=== PATIENT | female | born 1950 | race Caucasian/White ===

== ENCOUNTER 2019-09-05 10:00 | Outpatient (RCR) | payer MEDICARE, SELFPAY ==
[2019-07-20 14:00] VITALS: BP 143/80; BP 146/74; PULSE 55; RESP 16; O2SAT 100; BMI 28.8
[2019-07-20 14:02] VITALS: BP 162/77
[2019-07-20 15:05] VITALS: PULSE 54
== END 2019-10-18 23:59 | disposition home or self-care (01) ==
PROVIDERS: PCP Internal Medicine; Visit Provider Internal Medicine
DX: Z98.61 Coronary angioplasty status (principal)
CPT/HCPCS: 93798

== ENCOUNTER 2019-10-13 01:29 | Day surgery (SDC) | payer MEDICARE, SELFPAY ==
[2019-10-07 14:21] VITALS: BMI 26.6
[2019-10-13 10:46] VITALS: BP 150/92; PULSE 52; RESP 16; TEMP 36.9; O2SAT 99
[2019-10-13] MEDS: LACTATED RINGERS 1,000 ML 150 ML IV CONT (11:05)
--- NOTE | 2019-10-13 11:06 | WPDHPUPDATE1 ---
History and Physical Update Update Date/Time: 10/13/19 11:06 History and Physical has been reviewed, including an updated exam of the patient. There are NO changes in the patient's condition. Risks, benefits, and alternatives have been discussed and questions answered. Patient agrees to proceed with procedure.
--- NOTE | 2019-10-13 11:23 | WPDANESEPPF ---
Anes - Initial Pre Proc Eval Procedure: Operation Date: 10/13/19 14:45 Proposed Procedures p Screening Colonoscopy - Anuel Trevino MD Date/Time: 10/13/19 11:23 Surgeon: Anuel Trevino MD Pre Op Diagnosis: Neoplasm Screening Patient Data Age: 69 Gender: F Height: 5 ft 6 in Weight: 77 kg Last Vital Signs Temp 36.9 C 10/13/19 10:46 Pulse 52 L 10/13/19 10:46 Resp 16 10/13/19 10:46 BP 150/92 H 10/13/19 10:46 Pulse Ox 99 10/13/19 10:46 Allergies Allergy/AdvReac Type Severity Reaction Status Date / Time No Known Allergies Allergy Unverified 10/13/19 10:43 Home Medications Medication Instructions Recorded Confirmed Type aspirin 81 mg chewable tablet 81 mg PO DAILY 10/03/19 10/13/19 History atorvastatin 80 mg tablet 80 mg PO DAILY 10/03/19 10/13/19 History carvedilol 3.125 mg tablet 3.125 mg PO Q12H 10/03/19 10/07/19 History clopidogrel 75 mg tablet 75 mg PO DAILY 10/03/19 10/13/19 History ergocalciferol (vitamin D2) 50,000 See Rx Instructions .ROUTE .COMPLEX 10/03/19 History unit tablet escitalopram oxalate 5 mg tablet 5 mg PO DAILY 10/03/19 10/07/19 History losartan 50 mg tablet 50 mg PO DAILY 10/03/19 10/07/19 History pantoprazole 20 mg tablet,delayed 20 mg PO DAILY tablet 10/03/19 10/07/19 History release Patient hx anesthesia problems: none Family hx anesthesia problems: none PMFSH Past Medical History Medical History Asthma CAD (coronary artery disease) High cholesterol Hypertension Positive colorectal cancer screening using Cologuard test Surgical History Surgical History H/O tubal ligation History of tonsillectomy Family History Family History Father No problems noted. Mother Pacemaker Social History Social History Smoking status: Never smoker Second hand tobacco smoke exposure: No Anes - Eval Final PreProcedure Day of Procedure 10/13/19 11:23 Patient weight: overweight Heart: regular rate and rhythm Lungs: clear to auscultation Airway: Mallampati scale class II Neurological: alert and oriented Last oral intake: >/= 8 hours ASA classification: III Emergent: no Anesthetic plan: proceed Anesthesia type and monitoring: general GIVS and standard monitoring Informed Consent: The patient's anesthetic plan and its attendant risks and benefits were discussed with the patient/family/POA. Questions were solicited and answers provided to the satisfaction of the patient/family/POA.
[2019-10-13 12:09] VITALS: BP 115/52; PULSE 55; RESP 15; O2SAT 98
[2019-10-13 12:19] VITALS: BP 111/51; PULSE 52; RESP 17; O2SAT 100
[2019-10-13 12:29] VITALS: BP 129/63; PULSE 54; RESP 18; O2SAT 100
[2019-10-13 12:39] VITALS: BP 151/73; PULSE 56; RESP 20; O2SAT 100
== END 2019-10-13 12:44 | disposition home or self-care (01) ==
PROVIDERS: PCP Internal Medicine; Visit Provider Internal Medicine Gastroenterology
PROC: 0DJD8ZZ Inspection of Lower Intestinal Tract, Via Natural or Artificial Opening Endoscopic (ICD-10-PCS; CPT 45378; principal; 2019-10-13 14:45)
DX: Z12.11 Encounter for screening for malignant neoplasm of colon (principal); R19.5 Other fecal abnormalities; D12.0 Benign neoplasm of cecum; D12.2 Benign neoplasm of ascending colon; K57.30 Diverticulosis of large intestine without perforation or abscess without bleeding; K64.8 Other hemorrhoids; I10 Essential (primary) hypertension; I25.10 Atherosclerotic heart disease of native coronary artery without angina pectoris; E78.00 Pure hypercholesterolemia, unspecified; Z79.82 Long term (current) use of aspirin; Z79.02 Long term (current) use of antithrombotics/antiplatelets
CPT/HCPCS: 45385; 88305; J2704; J7120

== ENCOUNTER 2019-10-19 10:17 | Outpatient (RCR) | payer MEDICARE, SELFPAY ==
[2019-10-19 00:04] VITALS: BP 162/77; PULSE 54; RESP 16; O2SAT 100; BMI 28.8
== END 2019-10-21 13:38 | disposition home or self-care (01) ==
PROVIDERS: PCP Internal Medicine; Visit Provider Internal Medicine
DX: Z98.61 Coronary angioplasty status (principal)
CPT/HCPCS: 93798

== ENCOUNTER 2021-12-06 10:49 | Outpatient (CLI) | payer MEDICARE, SELFPAY ==
[2021-12-06 11:01] LABS: Appearance Urine Clear (Clear); Bilirubin Urine Negative (Negative); Color Urine Light Yellow (Yellow); Glucose Urine UA Negative (Negative); Hematocrit 34.9 % (35.0-42.0); Hemoglobin 11.8 g/dL (11.7-13.8); Ketones Urine Negative (Negative); Leukocyte Esterase Ur 1+ (Negative); Mean Corpuscular HGB Conc 33.8 g/dL (32.0-36.0); Mean Corpuscular Hemoglobin 29.8 pg (27.0-31.0); Mean Corpuscular Volume 88.1 fL (78.0-102.0); Mean Platelet Volume 9.4 fl (9.2-11.8); Nitrate Urine Negative (Negative); Platelet Count Result 219 K/mm3 (150-420); Protein Urine Negative (Negative); Red Blood Count 3.96 M/mm3 (4.20-5.40); Specific Grav Ur >= 1.030 (1.010-1.020); Urobilinogen Urine 0.2 mg/dL (0.2-1.0); White Blood Count 3.7 K/mm3 (4.8-10.8)
[2021-12-06 11:06] LABS: Add Urine Microscopic? YES; Bacteria Urine 1+ /hpf; Blood Urine Trace-lysed (Negative); Squamous Epithelial Cell Urine Few /hpf (Few); WBC Urine 0-3 /hpf (0-3)
[2021-12-06 11:22] LABS: Band Neutrophils Percent 0 % (0-6); Basophils Absolute Manual 0.03 K/mm3 (0-0.1); Basophils Percent Manual 1 % (0-1); Eosinophils Absolute Manual 0.07 K/mm3 (0.02-0.5); Eosinophils Percent Manual 2 % (1-6); Lymphocytes Absolute Manual 1.51 K/mm3 (1.1-4.5); Lymphocytes Percent Manual 41 % (18-44); Monocytes Absolute Manual 0.22 K/mm3 (0.1-0.90); Monocytes Percent Manual 6 % (3-9); Neutrophils Absolute Manual 1.85 K/mm3 (1.7-7.2); Neutrophils Percent Manual 50 % (46-73); Total Cells Counted 100
[2021-12-06 11:24] LABS: Platelet Estimate Adequate (Adequate)
[2021-12-06 12:17] LABS: Alanine Aminotransferase 26 U/L (14-59); Albumin Level 3.8 g/dL (3.4-5.0); Alkaline Phosphatase 76 U/L (46-116); Anion Gap 6 mmol/L (8-16); Aspartate Amino Transferase 14 U/L (15-37); Bilirubin,Total 0.6 mg/dL (0.00-1.00); Blood Urea Nitrogen 12 mg/dL (7-18); Calcium 8.7 mg/dL (8.5-10.1); Carbon Dioxide 30 mmol/L (21-32); Chloride 105 mmol/L (98-108); Cholesterol 180 mg/dL (0-200); Estimated Glomerular Filt Rate 59; Glucose 96 mg/dL (70-99); HDL Direct 50 mg/dL (40-60); LDL Cholesterol Calculated 98 mg/dL (<130); Osmolality Calculated 291 mOsm/kg (285-295); Potassium 4.2 mmol/L (3.5-5.1); Sodium 141 mmol/L (136-145); Total Protein 6.7 g/dL (6.4-8.2); Triglycerides 162 mg/dL (0-150)
== END 2021-12-06 10:50 | disposition home or self-care (01) ==
LOC: CHSLAB 10:51
PROVIDERS: PCP Internal Medicine; Visit Provider Internal Medicine
DX: E78.5 Hyperlipidemia, unspecified (principal); I10 Essential (primary) hypertension
CPT/HCPCS: 36415; 80053; 80061; 81001; 85025

== ENCOUNTER 2021-12-10 10:28 | Outpatient (CLI) | payer MEDICARE, SELFPAY ==
--- NOTE | ~2021-12-10 | XR_ITS ---
EXAM: XR hand RT min 3V HISTORY: chronic RT 1st metacarpal pain COMPARISON: None available FINDINGS: Osteopenia. Scattered mild interphalangeal joint degenerative change. Moderate sclerosis, severe narrowing, with adjacent old fracture fragment or fractured osteophyte at the trapeziometacarp al joint. Scattered subchondral cysts in the carpal bones. Old ulnar styloid fracture fragment. Ulnar negative variance. IMPRESSION: Moderate right trapeziometacarpal osteoarthritis. Reviewed, dictated and finalized at location K.
--- NOTE | ~2021-12-10 | US_ITS ---
EXAMINATION: US venous doppler LE RT EXAM DATE: 12/10/2021 10:49 INDICATION: Right Leg Swelling. TECHNIQUE: Multiple grayscale, color flow and Doppler images of the right lower extremity deep venous system were obtained and reviewed. There is no prior study for comparison. FINDINGS: The right common femoral, femoral and profunda veins demonstrate normal color flow, respira tory variation, augmentation and compressibility. Compressibility, color flow confirmed within the r ight popliteal, posterior tibial, peroneal, and greater saphenous veins. IMPRESSION: No right lower extremity deep venous thrombosis. Reviewed, dictated and finalized at location A.
== END 2021-12-10 10:29 | disposition home or self-care (01) ==
LOC: CHSIMG 10:29
PROVIDERS: PCP Internal Medicine; Visit Provider Internal Medicine
DX: M79.89 Other specified soft tissue disorders (principal); M79.641 Pain in right hand
CPT/HCPCS: 73130; 93971

== ENCOUNTER 2021-12-20 13:22 | Outpatient (RCR) | payer MEDICARE, SELFPAY ==
--- NOTE | 2021-12-20 14:47 | PTOPEVAL ---
PHYSICAL THERAPY EVALUATION AND PLAN OF CARE 12-20-21 Thank you for referring Katlyn Mckeon to [facility] for the diagnosis of R lower leg lymphedema. The evaluation was completed and she continues to improve with decreased edema. Education was provided for lymphedema information, skin care, compression garments. She is to obtain a compression calf high garment. The PT plan of care is 0-2 x/week for 4 weeks. Shannan is to call if she has any further questions, or if additional therapy treatment is needed, she will call for an appointment. Please review, sign, date and return this plan of care JOSE. I agree with and certify that the following plan of care is medically necessary. Referring Physician Date Attending Provider: Jameel Gallo MD Past Medical History Source of Past Medical History Recalled from Previous Visit, Confirmed with Patient/Family Neurological History Hx Neurological Disorders No Significant History Cardiovascular History Hx Cardiac Catheterization Yes Hx Chest Pain Yes Hx Coronary Stent Yes Hx Hypertension Yes: meds control Hx Myocardial Infarction Yes Respiratory History Hx Asthma Yes Hx Pneumonia Yes Gastrointestinal History Hx Gastroesophageal Reflux Disease Yes Hx Other Gastrointestinal Disorders Yes: to see gastro dr due to stomach issues Genitourinary History Hx Genitourinary Disorders No Significant History Musculoskeletal History Hx Orthopedic Surgery Yes: R FOOT SURGERY- bunion surgery Hx Other Musculoskeletal Disorders Yes: L bunion; R thumb OA and small fracture- wearing splint Hematological History Hx Hematological Disorders No Significant History Endocrine History Hx Endocrine Disorders No Significant History HEENT History Hx HEENT Disorders No Significant History Integumentary History Hx Skin Disorders No Significant History Reproductive History Hx Tubal Ligation Yes Psychosocial History Hx Anxiety Yes Hx Depression Yes Hx Anesthesia Reactions No Significant History Evaluation Information Diagnosis edema of R LE Onset Oct 29, 2021 Prior Level of Function Activity Level (Last 3 Months) Activity of Daily Living Ability Independent Indoor/Home Mobility Independent Community Mobility Independent Stairs Ability Independent Functional Cognition (Planning, Shopping Independent , Taking Medications) Cooking Yes Cleaning Yes Laundry Yes Shopping Yes Driving Yes Home Setting Home Type House Living Situation With Spo
--- NOTE | 2022-01-20 13:11 | PCPTNOTE ---
PHYSICAL THERAPY DISCHARGE 01-20-22 Attending Provider: Jameel Gallo MD Patient:Katlyn Mckeon Date of :1950 Mrs. Mckeon has not returned for any further treatments since the initial evaluation on 12/20/2021, therefore she will be discharged at this time. At the evaluation, she reported that her leg had improved. She was measured for a compression garment and was to call if she had any further needs. Thank you for referring Shannan to [facility]. Please review, sign, date and return this discharge summary JOSE. I have been updated about the patient's current status and I agree with discharge from the above service at this time. Referring Physician Date
== END 2022-01-20 15:40 | disposition home or self-care (01) ==
LOC: ANHPT 13:22
PROVIDERS: PCP Internal Medicine; Visit Provider Orthopaedic Surgery
DX: M25.461 Effusion, right knee (principal)
CPT/HCPCS: 97161

== ENCOUNTER 2022-01-03 01:23 | Day surgery (SDC) | payer MEDICARE, SELFPAY ==
[2021-12-26 12:31] VITALS: BMI 28.4
[2022-01-03 07:42] VITALS: BP 140/52; PULSE 47; RESP 16; TEMP 36.1; O2SAT 99
--- NOTE | 2022-01-03 07:42 | P.PNAN_ITS ---
Anes - Initial Pre Proc Eval Procedure: Operation Date: 01/03/22 08:30 Proposed Procedures p Esophagogastroduodenoscopy - Anuel Trevino MD Date/Time: 01/03/22 07:42 Surgeon: Anuel Trevino MD Pre Op Diagnosis: dysphagia Patient Data Age: 71 Gender: F Height: 1.68 m Weight: 80 kg Allergies Allergy/AdvReac Type Severity Reaction Status Date / Time No Known Allergies Allergy Verified 01/03/22 07:40 Home Medications Medication Instructions Recorded Confirmed Type aspirin 81 mg chewable tablet 81 mg PO DAILY 10/03/19 01/03/22 History atorvastatin 80 mg tablet 80 mg PO DAILY 10/03/19 01/03/22 History carvedilol 3.125 mg tablet 3.125 mg PO Q12H 10/03/19 01/03/22 History ergocalciferol (vitamin D2) 50,000 See Rx Instructions .ROUTE .COMPLEX 10/03/19 01/03/22 History unit tablet escitalopram oxalate 5 mg tablet 5 mg PO DAILY 10/03/19 01/03/22 History losartan 50 mg tablet 100 mg PO DAILY 10/03/19 01/03/22 History pantoprazole 20 mg tablet,delayed 20 mg PO DAILY tablet 10/03/19 01/03/22 History release Patient hx anesthesia problems: none Family hx anesthesia problems: none Results Review: All pre-operative results and documents have been reviewed as part of the pre-operative evaluation. [facility] Past Medical History Medical History (Updated 12/24/21 @ 15:21 by Anuel Trevino MD) Acquired hallux valgus of left foot Adenomatous colon polyp Arthritis Arthritis of carpometacarpal (CMC) joint of right thumb Asthma CAD (coronary artery disease) Edema of lower extremity due to peripheral venous insufficiency GERD (gastroesophageal reflux disease) Heart attack High cholesterol Hypertension Osteoporosis Positive colorectal cancer screening using Cologuard test Surgical History Surgical History (Updated 12/19/21 @ 08:31 by Aviva Montenegro) H/O foot surgery Bunionectomy H/O heart artery stent H/O tubal ligation History of tonsillectomy Family History Family History (Updated 12/19/21 @ 08:31 by Aviva Montenegro) Father No problems noted. Mother Pacemaker Other Asthma Hypertension Social History Social History (Updated 12/19/21 @ 08:31 by Aviva Montenegro) Smoking status: Never smoker Second hand tobacco smoke exposure: No Alcohol intake: current Alcohol use details: on occcasion Substance use: never Substance use type: does not use Living arrangements: with family Spiritual care concerns: No Anes - Eval Final PreProcedure Day of Procedure 01/03/22 07:42 Patient weight: overweight Heart: regular rate and rhythm Lungs: clear to auscultation and normal air movement Airway: Mallampati scale class II Neurological: alert and oriented Last oral intake: >/= 8 hours ASA classification: III Emergent: no Anesthetic plan: proceed Anesthesia type and monitoring: general GIVS Results Review: All pre-operative results and documents have been reviewed as part of the pre-operative evaluation. Informed Consent: The patient's anesthetic plan and its attendant risks and benefits were discussed with the patient/family/POA. Questions were solicited and answers provided to the satisfaction of the patient/family/POA.
[2022-01-03] MEDS: LACTATED RINGERS 1,000 ML 150 ML IV CONT (07:53)
--- NOTE | 2022-01-03 07:57 | ECG_ITS ---
Measurements Intervals [place] Rate: 44 P: 20 VA: 162 QRS: 15 QRSD: 105 T: 23 QT: 483 QTc: 416 Interpretive Statements SINUS BRADYCARDIA WITH SINUS ARRHYTHMIA ABNORMAL ECG NO PREVIOUS ECG AVAILABLE FOR COMPARISON Electronically Signed On 01-03-2022 12:48:32 CDT by Fabio Paez M.D.
--- NOTE | 2022-01-03 08:19 | WPDHPUPDATE1 ---
History and Physical Update Update Date/Time: 01/03/22 08:19 History and Physical has been reviewed, including an updated exam of the patient. There are NO changes in the patient's condition. Risks, benefits, and alternatives have been discussed and questions answered. Patient agrees to proceed with procedure.
[2022-01-03 08:37] VITALS: BP 130/69; PULSE 50; RESP 14; O2SAT 99
[2022-01-03 08:47] VITALS: BP 138/89; PULSE 50; RESP 15; O2SAT 99
[2022-01-03 08:57] VITALS: BP 143/62; PULSE 57; RESP 19; O2SAT 99
== END 2022-01-03 09:05 | disposition home or self-care (01) ==
PROVIDERS: PCP Internal Medicine; Visit Provider Internal Medicine Gastroenterology
PROC: 0DJ08ZZ Inspection of Upper Intestinal Tract, Via Natural or Artificial Opening Endoscopic (ICD-10-PCS; CPT 43235; principal; 2022-01-03 08:30)
DX: K21.9 Gastro-esophageal reflux disease without esophagitis (principal); K44.9 Diaphragmatic hernia without obstruction or gangrene; K22.2 Esophageal obstruction; K29.50 Unspecified chronic gastritis without bleeding; K31.7 Polyp of stomach and duodenum; M19.90 Unspecified osteoarthritis, unspecified site; J45.909 Unspecified asthma, uncomplicated; I25.10 Atherosclerotic heart disease of native coronary artery without angina pectoris; I87.2 Venous insufficiency (chronic) (peripheral); R60.0 Localized edema; I25.2 Old myocardial infarction; I10 Essential (primary) hypertension; E78.00 Pure hypercholesterolemia, unspecified; M81.0 Age-related osteoporosis without current pathological fracture; Z79.82 Long term (current) use of aspirin; R00.1 Bradycardia, unspecified; M20.12 Hallux valgus (acquired), left foot
CPT/HCPCS: 43249; 43239; 88305; 93005; C1726; J2704; J7120

== ENCOUNTER 2023-05-25 13:35 | Outpatient (CLI) | payer MEDICARE, SELFPAY ==
--- NOTE | ~2023-05-25 | DEXA_ITS ---
Bone Density Report Name: LASHELL GRULLON Age: 72 Sex: Female Ethnicity: White Date of : 1950 Indication: postmenopausal; screening for osteoporosis; height loss; prior fracture; asthma or emphysema; Referring Provider: Natan Argueta Study: Bone densitometry was performed. Exam Date: May 25, 2023 Accession number: [id number] Bone Density: Region BMD T-score Z-score Classification AP Spine(L1, L2, L4) 0.800 -2.1 0.2 Osteopenia Femoral Neck (Left) 0.622 -2.0 0.0 Osteopenia Total Hip (Left) 0.784 -1.3 0.4 Osteopenia Femoral Neck (Right) 0.634 -1.9 0.1 Osteopenia Total Hip (Right) 0.811 -1.1 0.6 Osteopenia Femoral Neck Mean 0.628 -2.0 0.0 Osteopenia Total Hip Mean 0.798 -1.2 0.5 Osteopenia World Health Organization criteria for BMD impression classify patients as: Normal (T-score at or above -1.0), Osteopenia (T-score between -1.0 and -2.5), or Osteoporosis (T-score at or below -2.5). 10-year Fracture Risk(1): Major Osteoporotic Fracture 19% Hip Fracture 4.3% Reported Risk Factors: [place] (), Neck BMD=0.622, BMI=29.1, previous fracture (1) FRAX(R) Version 3.08. Fracture probability calculated for an untreated patient. Fracture probability may be lower if the patient has received treatment. Clinical Information Provided by Patient: Has had a low trauma fracture Has used the following medications: Vitamin D Has the following medical conditions: Asthma or Emphysema Patient maximum height was 66 Menopause Age: 47 No regular weight bearing exercise Does not regularly consume dairy products Drinks caffeinated beverages Onset of menses at age 12 Number of children 3 Impression: The patient has low bone mass, based on the Total Spine T-score. The patient has risk factors, including: previous fracture. Discussion: BONE DENSITY IS LOW AT ONE OR MORE SKELETAL SITES. This patient's lowest T-score is low at one or more skeletal sites. It meets the World Health Organization's (WHO) criteria for ?low bone mass? (T-score between -1.0 and -2.5). The patient's 10-year risk of fracture as calculated by FRAX is less than the threshold where pharmacological therapy is recommended by the National Osteoporosis Foundation (NOF). However, all treatment decisions require clinical judgment and consideration of individual patient factors, including patient preferences, comorbidities, previous drug use, risk factors not captured in the FRAX model (e.g., frailty, falls, vitamin D deficiency, increased bone turnover, interval significant decline in bone density) and possible under or overestimation of fracture risk by FRAX. The patient should follow a healthful lifestyle (good nutrition with adequate calcium and vitamin D, and appropriate weight-bearing exercise). Follow-Up: Consider repeating this study in 2 to 3 years to reassess this patient's status
--- NOTE | ~2023-05-25 | MM_ITS ---
EXAMINATION: MM screening lesia BI w pernell HISTORY: Screening TECHNIQUE: Craniocaudal and mediolateral oblique 3-D tomosynthesis images were obtained and synthetic 2-D images were generated. CAD analysis was submitted and interpreted. COMPARISON: No prior mammogram is available for comparison at this institution. BREAST PARENCHYMAL COMPOSITION: Breast composed of scattered areas of fibroglandular density FINDINGS: There is no evidence of suspicious mass, calcification, or architectural distortion to sugg est malignancy in either breast. There has been no suspicious interval change. IMPRESSION: 1. No mammographic evidence of malignancy. 2. Recommend routine screening mammography in one year. BI-RADS Category 1: Negative Reviewed, dictated and finalized at location A.
== END 2023-05-25 13:36 | disposition home or self-care (01) ==
LOC: CHSIMG 13:39
PROVIDERS: PCP Internal Medicine; Visit Provider Internal Medicine
DX: Z12.31 Encounter for screening mammogram for malignant neoplasm of breast (principal); M81.0 Age-related osteoporosis without current pathological fracture; M85.89 Other specified disorders of bone density and structure, multiple sites
CPT/HCPCS: 77063; 77067; 77080

== ENCOUNTER 2025-02-23 01:08 | Day surgery (SDC) | payer MEDICARE, SELFPAY ==
[2025-02-10 10:58] VITALS: BMI 26.5
--- OUTSIDE RECORDS SUMMARY | 2025-02-23 01:15 | XMS_ITS | Data Portability ---
Author Organization [facility], [address] [facility] ([place]) Address [address] [place] [address] Care Team Providers Care Premium Representative Name Role Phone HAROON MARISCAL Primary Care Provider [phone] Assessment Encounter Date Assessment Date Assessment LastModified by Organization Details LastModified Time 05/18/2024 05/18/2024 I advised patient to return in 6 months and pending path report if needed. Sun protection was reviewed with the patient including sunscreen and sun protective clothing. Not available 05/18/2024 12:33:01 Plan of Treatment Reminders Order Date Submit Date Provider Last Modified By Organization Details Last Modified Time Details Appointments Establish ed Patient 15.EST 2024 09:00A M Dr. Evelyn Chawla Not available Not available Not available Lab surgical pathology study 2024 025 [facility], [address] [place] [address], [id number], 11/30/2024 17:29:40 surgical pathology study - R/O SCC 2023 024 [facility], [address] [place] [address], [id number], 05/20/2024 16:54:55 Referral None recorded. Procedures None recorded. Surgeries None recorded. Imaging None recorded. Medication Orders None recorded. Patient TargetsNo targets recorded. Patient InstructionsNo instructions recorded. Reason for Referral None Reported. Results Created Date Observation Date Name Description Value Unit Range Abnormal Flag Note LastModifiedBy Organization Detail LastModifiedTime 05/18/2005/20/2024 surgi sb patho logy study tissue exam biopsy [facility] [address],[place] [address] Ph. 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 Recei jean in 10% neutr al buffe red forma marisela for forma marisela-f ixed paraf fin-e mbedd ed secti ons label ed R forea rm is an unori ented 0.9 x 0.7 cm fragm ent of marmolejo- salvador skin excis ed to a depth of 0.1 cm. A 0.3 x 0.3 x 0.1 cm brown scab- like lesio n is prese nt on the skin surfa ce and is 0.3 cm from the close st jaida n. The speci men is inked , seria lly secti oned, and entir sanket submi tted for histo logic study in one casse tte. CLINI SB INFOR MATIO N: Skin biops y, right forea rm, kerat otic papul e 0.7 cm, rule out SCC. Not Available [place] [facility] [address] [place] [address], [id number], 05/20/2024 16:54:55 11/29/19 25 11/30/2024 surgi sb patho logy study tissue exam biopsy [facility] [address],[place] [address] Ph. Sinan Kelly MD, PhD, Medic al Dire USAMA Minor MD Patie nt: LUIZ ROACH e ID: [id number] Repor t Statu s: Final :0 1950 Case #: [id number] Age: 74 Y Gende r: F Date Colle cted: 11/28 MRN # : [id number] Date Recei jean: 11/28 Repor jami Date: 11/30 FINAL DIAGN OSIS: A. Skin, left preti karen super ior, shave biops y : - Squam ous cell carci noma, well diffe renti ated ICD-1 0: C44.7 29 B. Skin, left preti karen infer ior, shave biops y : - Squam ous cell carci noma, well diffe renti ated ICD-1 0: C44.7 29 Elect gilbert Mcguireif ied by Arlet Beavers MD Elect gilbert webber 11/30 16:27 SPECI MEN SOURC E: A. Skin, left preti karen super ior, shave biops y B. Skin, left preti karen infer ior, shave biops y GROSS DESCR IPTIO N: The speci men conta iner( s) and requi sitio n have the same patie nt name. A. Recei jean in 10% neutr al buffe red forma marisela for forma marisela-f ixed paraf fin-e mbedd ed secti ons label ed A, R preti karen super ior is an unori ented 0.7 x 0.7 cm fragm ent of white -salvador skin excis ed to a depth of 0.1 cm. A 0.2 x 0.2 x 0.1 cm marmolejo- salvador lesio n is prese nt on the skin surfa ce and is 0.1 cm from the close st jaida n. The speci men is inked , trise cted, and entir sanket submi tted for histo logic study in one [facility] tte. B. Recei jean in 10% neutr al buffe red forma marisela for forma marisela-f ixed paraf fin-e mbedd ed secti ons label ed B, L preti karen infer ior is an unori ented 0.6 x 0.6 cm fragm ent of white -salvador skin excis ed to a depth of 0.1 cm. A 0.5 x 0.5 x 0.1 cm harde deangelo marmolejo- salvador lesio n is prese nt on the skin surfa ce and is adjac ent to the jaida n. The speci men is inked , trise cted, and entir sanket submi tted for histo logic study in one [facility] tte. CLINI SB INFOR MATIO N: CLINI SB INFOR MATIO N: A: Skin biops y, left preti karen super ior, rule out SCC. B: Skin biops y, left preti karen infer ior, rule out SCC. Not Available [facility] [address] [place] [address], [id number], 11/30/2024 17:29:40 Result Notes None recorded. Problems Name Problem SNOMED Code Status Onset Date Resolution Date Notes Provider Name and Address Organization Details Recorded Time Actinic keratosis 737455227 Active 2023 Le[facility] 4 12:24:26 Seborrheic keratosis 675779230 Active 2023 Suzy Donald [facility] 5 10:38:05 Lentigo - freckle 682287103 Active 2023 Leilani Colon [facility] 4 12:33:30 Neoplasm of uncertain behavior of skin 49162691 Active 2023 Suzy Donald [facility] 5 10:38:55 Non-toxic multinodular goiter 75769861 Active 2023 Haylee Tran [facility] 4 14:27:24 Hypothyroidis m 65184224 Active 2024 Fior Arevalo [facility] 5 11:20:33 Multiple actinic keratoses 766255723 Active 2024 Suzynikita Donald [facility] 5 10:36:08 Seborrheic dermatitis 01103890 Active 2024 [facility] 5 10:38:02 Lentiginosis 157720291 Active 2024 [facility] 5 10:38:34 Problem Notes None recorded. Medical Equipment None Reported. Medications Name Sig Start Date Stop Date Status Note LastModified by Organization Details LastModified Time atorvastatin 80 mg tablet TAKE 1 TABLET BY MOUTH ONCE DAILY active Not Available Not Available No t Available tramadol 50 mg tablet TAKE 1 TABLET BY MOUTH 4 TIMES DAILY NEEDED FOR PAIN active Not Available Not Available No t Available levothyroxin e 25 mcg tablet TAKE 1 TABLET BY MOUTH ONCE DAILY FOR HYPOTHYROID ISM active Not Available Not Available No t Available amlodipine 10 mg tablet TAKE 1 TABLET BY MOUTH ONCE DAILY active Not Available Not Available No t Available levothyroxin e 50 mcg tablet TAKE 1 TABLET BY MOUTH ONCE DAILY IN THE MORNING FOR HYPOTHYROID ISM active Not Available Not Available No t Available pantoprazole 40 mg tablet,delay ed release TAKE 1 TABLET BY MOUTH ONCE DAILY active Not Available Not Available No t Available nitroglyceri n 0.4 mg sublingual tablet DISSOLVE ONE TABLET UNDER THE TONGUE EVERY 5 MINUTES NEEDED FOR CHEST PAIN. DO NOT EXCEED A TOTAL OF 3 DOSES IN 15 MINUTES active Not Available Not Available No t Available lidocaine HCl 2 % mucosal solution APPLY SPARINGLY TO MOUTH DIRECTED EVERY 2 HOURS NEEDED FOR PAIN active Not Available Not Available No t Available furosemide 20 mg tablet TAKE 1 TABLET BY MOUTH ONCE DAILY active Not Available Not Available No t Available losartan 100 mg tablet TAKE 1 TABLET BY MOUTH ONCE DAILY active Not Available Not Available No t Available escitalopram 5 mg tablet TAKE 1 TABLET BY MOUTH ONCE DAILY active Not Available Not Available No t Available Vitals Date Recorded Body height Provider Name an d Address Organization Details Last Updated DateTime 05/18/2024 167.64 cm Leilani Muñoz [place] - [facility] 05/18/2024 12:17:00 Social History None recorded. Functional Status None recorded. Mental Status None recorded. Family History Nothing Reported. Medical History No medical history recorded. Gynecological HistoryNo gynecological history recorded. Obstetrics History GPAL:G 0 P 0 0 0 0 Past Encounters Encounter ID Performer Location Encounter Start Date Encounter Closed Date Diagnosis/Indication Diagnosis SNOMED-CT Code Diagnosis ICD10 Code Diagnosis Note [id number] Evelyn Chawla MD [facility] Derm ([place]) [address] [place] [address] 05/18/2024 11:48:08 05/18/2024 13:01:07 History of malignant neoplasm of skin 327959714 Z85.828 History of melanoma and non melanoma skin cancer. We discussed the importance of regular skin exams by a physician as well as self skin examinatio ns. No evidence of recurrence in previously treated areas. We discussed the worrisome changes to watch for in skin lesions. We discussed the importance of watching for new and/or changing lesions. We discussed the importance of photoprote ction using protective clothing and sunscreen with SPF 30 or higher. History of Malignant melanoma 321919055 Z85.89 Actinic keratosis 007 L57.0 Actinic keratoses. The patient was advised that these are potentiall y pre-skin cancers: they have a small risk of developing into skin cancers and their presence signifies an increased risk for developing skin cancer. We reviewed treatment options. We discussed treating the lesions with liquid nitrogen today. The risks and benefits of the procedure, the risks and benefits of alternativ e procedures , as well as the possible consequenc es of not undergoing the procedure were discussed. The patient verbalized understand ing and gives consent to proceed. Liquid nitrogen was applied to affected areas. Side effects of pain, redness, blistering , scabbing, hypopigmen tation and recurrence were discussed with the patient. lesion(s) treated. Thus they were advised to use a sunscreen of at least SPF 30 and wear protective clothing. A total of 6 lesions treated on the: left medial leg-1, right posterior calf-1, right dorsal hand-1, left hand-1, left forearm-1, right nose-1 Seborrheic keratosis 394 784743 L82.1 Seborrheic keratoses We discussed the fact that these are benign lesions requiring no treatment. We discussed the fact that removal would be considered a cosmetic procedure and would not be covered by insurance. The patient was advised that more such lesions may develop. The patient is not bothered by the lesions and does not wish to have them treated. We will observe. Lentigo - freckle 769819 006 L81.4 Lentigines . We discussed the fact that lentigines are actinicall y induced and that they are benign. We discussed the fact that they should be watched carefully for change. We discussed the importance of photoprote ction using protective clothing and sunscreen with SPF 30 or higher on a regular basis. We will observe. Neoplasm o f uncertain behavior of skin 62369051 D48.5 Neoplasm uncertain behavior-2 38.2: Probable right forearm, R/O SCC Treatment options for the above were reviewed. I suggested we take a biopsy. The risks and benefits of the procedure, the risks and benefits of alternativ e procedures , as well as the possible consequenc es of not undergoing the procedure were discussed. The patient verbalized understand ing and gives consent to proceed. I took a tangential biopsy. The lesion was sampled. See scanned dermatolog y biopsy record. Biopsy site covered with vaseline and bandage after hemostasis achieved. Instructio homa reviewed with patient. [id number] Evelyn Chawla MD [facility] Derm ([place]) [address] [facility],[address]th [place] [address] 11/28/2024 10:12:58 11/28/2024 11:17:14 Multiple actinic keratoses 729248978 L57.0 Actinic keratoses. The patient was advised that these are potentiall y pre-skin cancers: they have a small risk of developing into skin cancers and their presence signifies an increased risk for developing skin cancer. We reviewed treatment options. We discussed treating the lesions with liquid nitrogen today. The risks and benefits of the procedure, the risks and benefits of alternativ e procedures , as well as the possible consequenc es of not undergoing the procedure were discussed. The patient verbalized understand ing and gives consent to proceed. Liquid nitrogen was applied to affected areas. Side effects of pain, redness, blistering , scabbing, hypopigmen tation and recurrence were discussed with the patient. lesion(s) treated. Thus they were advised to use a sunscreen of at least SPF 30 and wear protective clothing. A total of 4 lesions treated on the: 3 on right forearm, 1 on mid back History of malignant neoplasm of skin 524250248 Z85.828 History of melanoma and non melanoma skin cancer. We discussed the importance of regular skin exams by a physician as well as self skin examinatio ns. We discussed the worrisome changes to watch for in skin lesions. We discussed the importance of watching for new and/or changing lesions. We discussed the importance of photoprote ction using protective clothing and sunscreen with SPF 30 or higher. Seborrheic keratosis 394 763779 L82.1 Seborrheic keratosesW e discussed the fact that these are benign lesions requiring no treatment. We discussed the fact that removal would be considered a cosmetic procedure and would not be covered by insurance. The patient was advised that more such lesions may develop. The patient is not bothered by the lesions and does not wish to have them treated. We will observe. 2 lesions on the right clavicle were treated with liquid nitrogen. No charge for this procedure. Lentiginosis 357209740 L 81.4 We discussed the fact that lentigines are actinicall y induced and that they are benign. We discussed the fact that they should be watched carefully for change.We discussed the importance of photoprote ction using protective clothing and sunscreen with SPF thirty or higher on a regular basis. Neoplasm o f uncertain behavior of skin 31454799 D48.5 A) Probable squamous cell carcinoma: Left pre tibia: superior Treatment options for the above were reviewed. I suggested we take a biopsy. The risks and benefits of the procedure, the risks and benefits of alternativ e procedures , as well as the possible consequenc es of not undergoing the procedure were discussed. The patient verbalized understand ing and gives consent to proceed. I took a tangential biopsy.The lesion was removed. See scanned dermatolog y biopsy record.Flako tograph Taken Probable squamous cell carcinoma: left pre tibia inferior Treatment options for the above were reviewed. I suggested we take a biopsy. The risks and benefits of the procedure, the risks and benefits of alternativ e procedures , as well as the possible consequenc es of not undergoing the procedure were discussed. The patient verbalized understand ing and gives consent to proceed. I took a tangential biopsy.The lesion was removed. See scanned dermatolog y biopsy record.Flako tograph Taken Health Concerns Section Related Observation LastModified by Organization Detai ls LastModified Time None Recorded Concern Status LastModified by Organization Details LastModified Time None Recorded Advance Directives Directive None Recorded Payers Insurance Date Sequence Insurance Name Policy Number Policy Cedeño Covered Member ID Cedeño Member ID Guarantor Name 11/23/2024 1 [place] Shannan Mckeon [id number] Shannan Marcuszhanna 12/02/2024 2 [place] [id number] Shannan Mckeon [id number] Shannan Mckeon Notes Date Note Type Note Provider Name and Address Organization Details Recorded Time 05/18/2024 text/html EPV Date last seen: 01/20/2024 Site of melanoma: left upper arm Date of initial biopsy: 01/28/2017 Histologic description: [id number] Previous history of skin cancer: No Family history of skin cancer: No History of tanning bed use: No Concerning lesions: Yes-right forearm Review of systems: Headache: No Seizures: No Cough: No Shortness of breath: No Fatigue: No Weight loss: No Frequent Infections: No Bone pain: No Night sweats: No History of Present Illness documented by nursing staff, verified and amended as necessary by the attending provider who electronically signs this note. Evelyn Chawla MD [address] [place] [address], [phone], [facility] 05/18/2024 22:42:49 11/28/2024 text/html EPV Date last seen: 11/28/24 Patient presents today for a recheck of skin cancer. Previously treated lesions: See surgical history History of actinic keratoses previously treated: Yes Previous treatments:Liquid nitrogen: YesTopical fluorouracil: New/Changing lesions: Left chi itching: Nopain: Notenderness: Yesgrowth: Yesdrainage: Nocolor change: Noscaling: Yestopical treatment applied: No Regular use of sunscreen with SPF 15 or greater: YesRegular use of protective clothing: YesRegular performance of self skin examinations: Yes Major change in health status since last visit: NoOther concerns: No History of Present Illness documented by nursing staff, verified and amended as necessary by the attending Provider who electronically signs this note. Evelyn Chawla MD [address] [facility], [place], [address], [facility] 12/01/2024 23:08:39 OBGyn Episode No OBEpisode recorded.
--- OUTSIDE RECORDS SUMMARY | 2025-02-23 01:15 | XMS_ITS | Clinical Summary ---
Author Organization [facility] Address [facility] [place] [address] Care Team Providers Care [employer] Foreign Language Tutor Name Role Phone Natan Argueta MD Primary Care Provider [phone] Richar Pizano MD Unavailable [phone] Angelica Montoya MD Unavailable Allergies No known active allergies Medications pantoprazole EC 40 MG tablet Take 40 mg by mouth at bedtime 2 01/20/2019 Active escitalopram 5 MG tablet Take 5 mg by mouth daily. 0 07/14/2019 Active atorvastatin 80 MG tablet Take 80 mg by mouth daily. 02/14/2020 Active VITAMIN D, CHOLECALCIFEROL , ORIndications:p t stated takes 1 tab daily Indications: pt stated takes 1 tab daily Active ASPIRIN 81 ORIndications:p t stated takes 1 tablet daily Take 2 tablets by mouth. Indications: pt stated takes 1 tablet daily Active VENTOLIN HFA 108 (90 Base) MCG/ACT inhaler 09/11/2020 Act gianna losartan 100 MG tablet 03/13/2021 Active nitroglycerin (NITROSTAT) 0.[address] 1 tablet (0.4 mg total) under the tongue every 5 (five) minutes as needed for Chest Pain. Maximum of 3 doses. 25 tablet 2 03/07/2024 Active amLODIPine (NORVASC) 10 MG tablet Take 1 tablet (10 mg total) by mouth daily. 90 tablet 3 06/09/2024 Active furosemide (LASIX) 20 MG tablet Take 1 tablet by mouth once daily 90 tablet 12/19/2024 Active Active Problems Problem Noted Date Diagnosed Date Venous insufficiency 03/14/2020 Varicose veins of both lower extremities with pa in 03/14/2020 Anxiety 08/17/2019 CAD (coronary artery disease) 07/16/2019 Essential (primary) hypertension 07/16/2019 Hyperlipidemia, mixed 07/16/2019 Resolved Problems Problem Noted Date Diagnosed Date Resolved Date STEMI (ST elevation myocardi al infarction) ([facility]) 06/29/2019 07/16/2019 Encounters Date Type Department Care Team Description 12/19/2024 12:15 PM CDT - 12/19/2024 11:59 PM CDT Hospital Encounter [facility] [address] [id number] Richar Pizano MD Discharge Disposition: Home or Self Care (Routine Discharge) 12/19/[address] [facility] [address] [id number] Richar Pizano MD 12/19/2024 Travel from Last 3 Months Family History Medical History Relation Comments Alzheimers Father Heart Attack Maternal Grandmother pacemaker Mother Heart Attack Paternal Grandfather Relation Status Comments Brother Alive Father Maternal Grandfather Maternal Grandmother Mother Alive Paternal Grandfather Paternal Grandmother Sister Alive Social History Tobacco Use Types Packs/Day Years Used Date Smoking Tobacco: Never Smokeless Tobacco: Never Alcohol Use Standard Drinks/Week Comments Not Currently 0 (1 standard drink = 0.6 oz pur e alcohol) AUDIT-C Answer Date Recorded Frequency of Alcohol Consumption Never 06/28/2019 Average Number of Drinks Not on file 019 Frequency of Binge Drinking Not on file 06/08 Comments No Sex and Gender Information Value Date Recorded Sex Assigned at Female 10/26/2024 2:36 PM APPLICATION DEVELOPMENT SPECIALIST Legal Sex Female 1:22 PM CDT Gender Identity Female 06/29/2019 3:18 AM CDT Sexual Orientation Straight 06/29/2019 3: 18 AM CDT Last Filed Vital Signs Vital Sign Reading Time Taken Comments Blood Pressure 110/74 11/10/2024 12:55 PM APPLICATION DEVELOPMENT SPECIALIST Pulse 62 11/10/2024 12:55 PM APPLICATION DEVELOPMENT SPECIALIST Temperature 36.6 C (97.8 F) 06/30/2019 4:00 AM CDT Respiratory Rate 20 11/10/2024 12:5 5 PM APPLICATION DEVELOPMENT SPECIALIST Oxygen Saturation 96% 11/10/2024 12: 55 PM APPLICATION DEVELOPMENT SPECIALIST Inhaled Oxygen Concentration - - Weight 81.1 kg (178 lb 12.8 oz) 025 12:55 PM APPLICATION DEVELOPMENT SPECIALIST Height 167.6 cm (5' 6) 11/10/2024 12:5 5 PM APPLICATION DEVELOPMENT SPECIALIST Body Mass Index 28.86 11/10/2024 12:55 PM APPLICATION DEVELOPMENT SPECIALIST Plan of Treatment Upcoming Encounters Date Type Department Care Team (Late st Contact Info) Description 11/09/2025 10:45 AM APPLICATION DEVELOPMENT SPECIALIST Office Visit [facility] [phone] Angelica Montoya MD [address] [place] [id number] Health Maintenance Due Date Last Done Comments ASCVD Statin 1950 Colorectal Cancer Screening Colonoscopy (10 Years) 1950 Hepatitis C 1968 Annual Medicare Wellness Visit 2014 Dexa Scan (General) 2014 ASCVD LDL 06/30/2020 06/30/2019 COVID-19 Vaccine ( season) 2024 07/23/2022, 07/04/2021, 10/30/2020, Additional history exists RSV Immunization or 60+ Years (1 - 1-dose 75+ series) 2024 DTaP, Tdap and Td Vaccines (2 - Td or Tdap) 11/15/2031 11/14/2021 Pneumococcal Vaccine: 50+ Years Completed 01/02/2023 Zoster Vaccines Completed 03/12/2023, 12/23/2022 Meningococcal B Vaccine Aged Out No l onger eligible based on patient's age to complete this topic Meningococcal Vaccine Aged Out No harriet jeannette eligible based on patient's age to complete this topic RSV Immunizations Under 20 Months Aged Out No longer eligible based on patient's age to complete this topic Medical Devices Implanted Type Area Admissions Supervisor Device Identifier Shelf Expiration Date Model / Serial / Lot Cv Xience Jennifer Darrell-Lad-06/29 Implanted: by Raul Jones MD (Quantity not on file) Stent Coronary [employer] 03/23/2020 [id number] / / [id number] Cv Xience Jennifer Darrell-Lcx-06/29 Implanted: by Raul Jones MD (Quantity not on file) Stent Coronary LCX [employer] 03/31/2020 [id number] / / [id number] Procedures Procedure Name Priority Date/Time Associated Diagnosis Comments THYROID STIM HORMONE TSH Routine 12/19/2024 12:23 PM CDT Hypothyroidism LIPID PANEL Routine 06/30/2019 3:18 AM CDT from Last 3 Months or Most Recently Relevant to Health Maintenance Results * (ABNORMAL) THYROID STIM HORMONE TSH (12/19/2024 12:23 PM CDT) TSH 5.333(H) 0.358 - 3.740 uIU/ML 12/19/2024 12:52 PM CDT [facility] Comment: ASSAY PERFORMED BY CHEMILUMINESCENT IMMUNOASSAY METHODOLOGY USING SIEMENS DIMENSION REAGENT. PATIENT RESULTS DETERMINED BY ASSAYS FROM DIFFERENT MANUFACTURERS AND/OR BY DIFFERENT METHODS MAY NOT BE COMPARABLE. 12/19/2024 12:2 3 PM CDT us Richar Pizano MD LABORATORY Final Result [facility] [address] [place] [address], * (ABNORMAL) LIPID PANEL (06/30/2019 3:18 AM CDT) CHOLESTEROL 269 MG/DL 06/30/2019 10:06 AM CDT [facility] Comment:HIGH: > OR = 240 TRIGLYCERIDES 241 MG/DL 06/30/2019 10:06 AM CDT [facility] Comment:200-499 HIGH HDL 44(L) >49 MG/DL 06/30/2019 10:06 AM CDT [facility] LDL (CALCULATED) 177 MG/DL 06/30/20 19 10:06 AM CDT [facility] Comment:160-189 HIGH VLDL CALCULATION 48 MG/DL 06/30/20 19 10:06 AM CDT [facility] Comment:REFERENCE RANGE NOT ESTABLISHED CHOL/HDL RATIO 6.1 06/30/2019 10:06 AM CDT [facility] Comment:REFERENCE RANGE NOT ESTABLISHED LDL/HDL 4.0 06/30/2019 10:06 AM CDT [facility] Comment:REFERENCE RANGE NOT ESTABLISHED NON HDL CHOLESTEROL 225 MG/DL 06/30/2019 10:06 AM CDT [facility] Comment:REFERENCE RANGE NOT ESTABLISHED 06/30/2019 3:18 AM CDT Fabiana Henning PA-C LABORATORY Christine post Result [facility] [address] [place] [address], [id number] from Last 3 Months or Most Recently Relevant to Health Maintenance Insurance MEDICARE MEDICARE [facility] Advance Directives Documents on File Type Date Recorded Patient Watershed Tender Expl anation Advance Directives and Living Will 08/25/2019 3:38 PM Refer to EMIR perez regarding Advanced Directives Power of Interior Decorator Painting 08/25/2019 3:38 PM Mike Grullon, HCA-spouse; Trevin Grullon, 1st alternate HCA- son; Deisy Casanova, 2nd alternate HCA-daughter; * Full Code (Latest Code Status on File) Date Activated Date Inactivated Comments 06/29/2019 6:54 PM 06/30/2019 3:45 PM * Full Code Date Activated Date Inactivated Comments 06/29/2019 3:27 AM 06/29/2019 6:54 PM Healthcare Agents on File Name Relationship Healthcare Agent Relationship Communication Fabio Presley ([facility]) Linda Spouse Health Care Agent [phone] ([place] ) Medhat iLnda Son First Alternate Health Care Agent Deisy Vaughan Daughter Second Alte rnate Health Care Agent Care Teams [employer] Foreign Language Tutor Relationship Specialty Start Date End Date Natan Argueta MD [address] [place] [address] PCP - General INTERNAL MEDICINE 06/28/19 Richar Pizano MD [address] [phone] Consulting Physician OTOLARYNGOLOGY 04/17/23 Angelica Montoya MD [address] [place] [address] Consulting Physician CARDIOVASCULAR DISEASE 07/08/24
--- NOTE | 2025-02-23 10:40 | P.PNAN_ITS ---
Anes - Initial Pre Proc Eval Procedure: Operation Date: 02/23/25 13:00 Proposed Procedures p Screening Colonoscopy - Anuel Trevino MD Date/Time: 02/23/25 10:40 Surgeon: Anuel Trevino MD Pre Op Diagnosis: personal hx colon polyps Patient Data Age: 74 Gender: F Height: 1.7 m Weight: 76.81 kg Allergies Allergy/AdvReac Type Severity Reaction Status Date / Time No Known Allergies Allergy Verified 02/23/25 11:54 Home Medications ?Medication ?Instructions ?Recorded ?Confirmed ?Type aspirin 81 mg chewable tablet 81 mg PO DAILY 10/03/19 02/23/25 History atorvastatin 80 mg tablet 80 mg PO DAILY 10/03/19 02/23/25 History ergocalciferol (vitamin D2) 50,000 See Rx Instructions .Route .COMPLEX 10/03/19 02/23/25 History unit tablet escitalopram oxalate 5 mg tablet 5 mg PO DAILY 10/03/19 02/23/25 History losartan 50 mg tablet 100 mg PO DAILY 10/03/19 02/23/25 History pantoprazole 20 mg tablet,delayed 20 mg PO DAILY 10/03/19 02/23/25 History release levothyroxine 50 mcg capsule 50 mcg PO DAILY 02/10/25 02/23/25 History Patient hx anesthesia problems: none Family hx anesthesia problems: none Results Review: All pre-operative results and documents have been reviewed as part of the pre- operative evaluation. [facility] Past Medical History Medical History (Updated 12/24/21 @ 15:21 by Anuel Trevino MD) Adenomatous colon polyp GERD (gastroesophageal reflux disease) Arthritis Osteoporosis Heart attack Acquired hallux valgus of left foot Edema of lower extremity due to peripheral venous insufficiency Arthritis of carpometacarpal (CMC) joint of right thumb Asthma High cholesterol Hypertension CAD (coronary artery disease) Positive colorectal cancer screening using Cologuard test Surgical History Surgical History (Updated 02/23/25 @ 10:41 by Dinesh Hernandez DO) H/O heart artery stent x2 2019 H/O foot surgery Bunionectomy H/O tubal ligation History of tonsillectomy Family History Family History (Updated 12/19/21 @ 08:31 by Aviva Montenegro) Father No problems noted. Mother Pacemaker Other Asthma Hypertension Social History Social History (Updated 12/19/21 @ 08:31 by Aviva Montenegro) Smoking status: Never smoker Second hand tobacco smoke exposure: No Alcohol intake: never Alcohol use details: on occcasion Substance use: never Substance use type: does not use Living arrangements: alone Occupation/Education: retired Spiritual care concerns: No Anes - Eval Final PreProcedure Day of Procedure 02/23/25 10:40 Patient weight: overweight Heart: regular rate and rhythm Lungs: clear to auscultation Airway: Mallampati scale class II Neurological: alert and oriented Last oral intake: >/= 8 hours ASA classification: III Emergent: no Anesthetic plan: proceed Anesthesia type and monitoring: general GIVS and standard monitoring Results Review: All pre-operative results and documents have been reviewed as part of the pre- operative evaluation. Informed Consent: The patient's anesthetic plan and its attendant risks and benefits were discussed with the patient/family/POA. Questions were solicited and answers provided to the satisfaction of the patient/family/POA.
[2025-02-23 11:55] VITALS: BP 136/76; PULSE 58; RESP 16; TEMP 36.7; O2SAT 100; BMI 26.6
[2025-02-23] MEDS: LACTATED RINGERS 1,000 ML 150 ML IV CONT (12:07)
--- NOTE | 2025-02-23 13:36 | PM.HPGS ---
History of Present Illness History of Present Illness Consent: Risks, benefits, and alternatives have been discussed and questions answered. Patient agrees to proceed with procedure. Chief complaint: personal hx colon polyps Narrative: Katlyn Mckeon is a 74 year old female with colon polyp in 2019 Review of Systems Review of Systems: All systems reviewed & are unremarkable except as noted in HPI and below PMFSH Past Medical History Medical History (Updated 12/24/21 @ 15:21 by Anuel Trevino MD) Adenomatous colon polyp GERD (gastroesophageal reflux disease) Arthritis Osteoporosis Heart attack Acquired hallux valgus of left foot Edema of lower extremity due to peripheral venous insufficiency Arthritis of carpometacarpal (CMC) joint of right thumb Asthma High cholesterol Hypertension CAD (coronary artery disease) Positive colorectal cancer screening using Cologuard test Surgical History Surgical History (Updated 02/23/25 @ 10:41 by Dinesh Hernandez DO) H/O heart artery stent x2 2019 H/O foot surgery Bunionectomy H/O tubal ligation History of tonsillectomy Family History Family History (Updated 12/19/21 @ 08:31 by Aviva Montenegro) Father No problems noted. Mother Pacemaker Other Asthma Hypertension Social History Social History (Updated 12/19/21 @ 08:31 by Aviva Montenegro) Smoking status: Never smoker Second hand tobacco smoke exposure: No Alcohol intake: never Alcohol use details: on occcasion Substance use: never Substance use type: does not use Living arrangements: alone Occupation/Education: retired Spiritual care concerns: No Meds Home Medications and Allergies Home Medications ?Medication ?Instructions ?Recorded ?Confirmed ?Type aspirin 81 mg chewable tablet 81 mg PO DAILY 10/03/19 02/23/25 History atorvastatin 80 mg tablet 80 mg PO DAILY 10/03/19 02/23/25 History ergocalciferol (vitamin D2) 50,000 See Rx Instructions .Route .COMPLEX 10/03/19 02/23/25 History unit tablet escitalopram oxalate 5 mg tablet 5 mg PO DAILY 10/03/19 02/23/25 History losartan 50 mg tablet 100 mg PO DAILY 10/03/19 02/23/25 History pantoprazole 20 mg tablet,delayed 20 mg PO DAILY 10/03/19 02/23/25 History release levothyroxine 50 mcg capsule 50 mcg PO DAILY 02/10/25 02/23/25 History Allergies Allergy/AdvReac Type Severity Reaction Status Date / Time No Known Allergies Allergy Verified 02/23/25 11:54 Vital Signs Vital Signs - 24 hr 02/23/25 11:55 Temperature 98.1 F Pulse Rate 58 L Respiratory Rate 16 Blood Pressure 136/76 Pulse Oximetry 100 Oxygen Delivery Room Air Exam Const: General: comfortable and no acute distress HENMT: Face/Nose/Sinus: Normal nares present Eyes: General: appearance normal, both eyes and all related structures Neck: Neck: no JVD Resp: Auscultation: clear to auscultation bilaterally Cardio: Rate: regular rate Rhythm: regular rhythm GI: Inspection: non-distended GI Palp: Yes Soft to palpation Skin: General skin exam: normal color Neuro: Speech: normal speech Extrem: General: normal to inspection Psych: Mental Status: mental status grossly normal Assessment and Plan Assessment and plan (1) Adenomatous colon polyp: Code(s): D12.6 - Benign neoplasm of colon, unspecified Status: Acute Assessment and Plan: colonoscopy
[2025-02-23 13:54] VITALS: BP 121/60; PULSE 57; RESP 16; O2SAT 100
--- NOTE | 2025-02-23 13:57 | ECG_ITS ---
Test Date: 2025-02-23 14:09:28 Measurements Intervals [place] Rate: 53 P: 39 WI: 155 QRS: 15 QRSD: 109 T: 20 QT: 465 QTc: 440 Interpretive Statements SINUS BRADYCARDIA WITH MARKED SINUS ARRHYTHMIA BASELINE ARTIFACT- I, II, III, AVR, AVL, AVF BORDERLINE ECG No previous ECG available for comparison Electronically Signed On 02-23-2025 14:14:18 CDT by Gibson Conkiln D.O.
[2025-02-23 14:04] VITALS: BP 135/69; PULSE 52; RESP 16; O2SAT 100
--- NOTE | 2025-02-23 14:09 | SUR.PHASEII ---
Maryan Philip CRNA stated in an irregular rhythm. Spoke with Dr. Hernandez and orders for a STAT EKG received.
[2025-02-23 14:14] VITALS: BP 106/70; PULSE 57; RESP 17; O2SAT 100
--- NOTE | 2025-02-23 14:28 | SUR.PHASEII ---
Dr. Hernandez reviewed EKG and is okay for discharge at this time. EKG reads as Sinus bradycardia with marked sinus arrhythmia.
== END 2025-02-23 14:30 | disposition home or self-care (01) ==
PROVIDERS: PCP Internal Medicine; Referring Provider Internal Medicine Gastroenterology; Visit Provider Internal Medicine Gastroenterology
PROC: 0DJD8ZZ Inspection of Lower Intestinal Tract, Via Natural or Artificial Opening Endoscopic (ICD-10-PCS; CPT 45378; principal; 2025-02-23 13:00)
DX: Z12.11 Encounter for screening for malignant neoplasm of colon (principal); K57.30 Diverticulosis of large intestine without perforation or abscess without bleeding; K64.8 Other hemorrhoids; Z86.0100 Personal history of colon polyps, unspecified
CPT/HCPCS: G0105; 93005; J2003; J2704; J7120